=== PATIENT | female | born 1965 | race Caucasian/White ===

== ENCOUNTER 2021-01-05 19:07 | Emergency (ER) | payer BC, OTHER ==
[2021-01-05] MEDS ORDERED: Ketorolac Tromethamine 30 MG/ML VIAL ONE ×2 (19:54→21:19)
[2021-01-05] MEDS ORDERED: Ondansetron PF 4 MG/2 ML Vial ONE ×2 (19:54→22:06)
[2021-01-05 21:24] LABS: Bilirubin Neg (Negative); Blood, Urine 250 (Negative); Clarity Cloudy (Clear); Glucose, Urine (Dipstick) Normal (Negative); Ketone, Urine Negative (Negative); Leukocyte 25 (Negative); Nitrite Negative (Negative); Protein, Urine (Dipstick) 30 mg/dl (Neg-Trace); Urobilinogen Normal mg/dL (Less than 2); pH, Urine 6.5 (5.0-9.0)
[2021-01-05 21:30] LABS: #Eosinphils 0.1 10x3/uL (0.0-0.5); #Monocytes 0.6 10x3/uL (0.0-1.1); #Neutrophils 3.9 10x3/uL (1.5-8.4); %Basophils 0.7 % (0.0-2.0); %Eosinophils 1.5 % (0.0-6.0); %Lymphocytes 22.8 % (18.0-47.0); %Monocytes 9.4 % (0.0-10.0); %Neutrophils 64.4 % (40.0-75.0); Hemoglobin 12.9 g/dL (12.0-15.5); Mean Corpuscular HGB CONC 32.3 g/dL (32.0-36.0); Mean Corpuscular Hemoglobin 27.9 pg (27.0-33.0); Mean Corpuscular Volume 86.2 fl (81.6-98.3); Mean Platelet Volume 11.7 fl (7.4-10.4); Platelet Count 120 10x3/uL (150-450); RBC Distribution Width 18.7 % (11.5-14.5); Red Blood Cell (RBC) Count 4.63 10x6/uL (3.90-5.03)
[2021-01-05 21:33] LABS: Bacteria/HPF Rare-Few HPF (None Seen); RBC/HPF Greater than 50 HPF (0-3); Squamous Epithelial 0-3 HPF (0-3); WBC/HPF 0-3 HPF (0-3)
[2021-01-05 21:42] LABS: ALT (SGPT) 29 U/L (8-55); AST (SGOT) 36 U/L (5-34); Albumin 3.8 g/dL (3.5-5.0); Alkaline Phosphatase 182 U/L (40-110); Anion Gap 12 mmol/L (10-20); BUN (Urea Nitrogen) 7 mg/dL (9.8-20.1); Bilirubin, Total 0.9 mg/dL (0.2-1.2); Calc. Creatinine Clearance 0 mL/min (70-130); Carbon Dioxide 28 mmol/L (22-29); Chloride 102 mmol/L (98-107); Globulin 3.6 g/dL (2.4-3.5); Glucose 102 mg/dL (70-105); Potassium 3.2 mmol/L (3.5-5.1); Protein, Total 7.4 g/dL (6.0-8.3); Sodium 139 mmol/L (136-145)
[2021-01-05] MEDS ORDERED: Morphine 4 MG/ML VIAL ONE (22:05)
== END 2021-01-05 23:00 | disposition home or self-care (01) ==
LOC: CSHERS 19:07
DX: N13.2 Hydronephrosis with renal and ureteral calculous obstruction (principal)
CPT/HCPCS: 74176; 80053; 81003; 81015; 85025; 96374; 96375; 96376; J1885; J2270; J2405

== ENCOUNTER 2021-01-21 08:28 | Outpatient (CLI) | payer BC, OTHER | END 2021-01-21 08:29 | disposition home or self-care (01) | LOC: CSHCT 08:28 | PROVIDERS: ATTEND Internal Medicine Hematology & Oncology | DX: C18.7 Malignant neoplasm of sigmoid colon (principal); C78.7 Secondary malignant neoplasm of liver and intrahepatic bile duct; R16.1 Splenomegaly, not elsewhere classified; N20.0 Calculus of kidney | CPT/HCPCS: 71260; 74177 ==

== ENCOUNTER 2021-06-22 12:04 | Outpatient (CLI) | payer OTHER | END 2021-06-22 12:05 | disposition home or self-care (01) | LOC: CSHULT 12:04 | PROVIDERS: ATTEND Internal Medicine Hematology & Oncology | DX: E07.89 Other specified disorders of thyroid (principal); E04.1 Nontoxic single thyroid nodule | CPT/HCPCS: 76536 ==

== ENCOUNTER 2021-08-03 08:41 | Outpatient (CLI) | payer OTHER | END 2021-08-03 08:42 | disposition home or self-care (01) | LOC: CSHMRI 08:41 | PROVIDERS: ATTEND Internal Medicine Hematology & Oncology | DX: C80.1 Malignant (primary) neoplasm, unspecified (principal); K76.9 Liver disease, unspecified; N28.1 Cyst of kidney, acquired | CPT/HCPCS: 71260; 72197; 74183 ==

== ENCOUNTER 2023-12-24 | Outpatient (CLI) | payer OTHER | END 2023-12-24 08:17 | disposition home or self-care (01) | DX: C18.7 Malignant neoplasm of sigmoid colon (principal); C78.7 Secondary malignant neoplasm of liver and intrahepatic bile duct; K76.9 Liver disease, unspecified; N28.9 Disorder of kidney and ureter, unspecified ==

== ENCOUNTER 2024-03-28 08:14 | Outpatient (CLI) | payer OTHER ==
[2024-03-28] MEDS ORDERED: Iopamidol 300 61% 100 ML VIAL FS ONE (12:53)
== END 2024-03-28 08:15 | disposition home or self-care (01) ==
LOC: CSHCT 08:14
PROVIDERS: ATTEND Internal Medicine Hematology & Oncology
DX: C18.9 Malignant neoplasm of colon, unspecified (principal); K76.9 Liver disease, unspecified
CPT/HCPCS: 71260; 74177

== ENCOUNTER 2025-07-03 08:46 | Outpatient (CLI) | payer BC | END 2025-07-03 08:47 | disposition home or self-care (01) | LOC: CSHMRI 08:46 | PROVIDERS: ATTEND Internal Medicine Hematology & Oncology | DX: M79.89 Other specified soft tissue disorders (principal); C18.7 Malignant neoplasm of sigmoid colon; C78.7 Secondary malignant neoplasm of liver and intrahepatic bile duct; Z14.8 Genetic carrier of other disease; D50.8 Other iron deficiency anemias; R22.32 Localized swelling, mass and lump, left upper limb ==